=== PATIENT | male | born 1945 | race Caucasian/White ===

== ENCOUNTER 2016-08-05 10:21 | Emergency (ER) | payer OTHER ==
[~2016-08-05] VITALS: Ht 176.5 cm; Wt 73.9 kg
--- NOTE | 2016-08-05 10:38 | ED GENERAL ADULT ---
History of Present Illness General Chief Complaint: Dizziness Stated Complaint: DIZZINESS, CHILLS, FEVER Source: patient, family, old records Exam Limitations: no limitations Vital Signs & Intake/Output Vital Signs & Intake/Output Vital Signs Date Time Temp Pulse Resp B/P Pulse O2 O2 Flow FiO2 Ox Delivery Rate 08/05 1250 99.9 60 18 109/58 99 Room Air 08/05 1209 100.7 08/05 1128 101.7 08/05 1123 101.7 08/05 1042 96 08/05 1031 97.5 87 20 130/74 97 Room Air Room Air Allergies Coded Allergies: acetaminophen (From VICODIN) (Intermediate, ITCHY RASH 08/05/16) hydrocodone (From VICODIN) (Intermediate, ITCHY RASH 08/05/16) oxycodone (From PERCOCET) (Intermediate, ITCHY RASH 08/05/16) Reconcile Medications Benzonatate (Tessalon Perle) 100 MG CAPSULE 1 CAP PO TID PRN COUGH Oseltamivir Phosphate (Tamiflu) 75 MG CAPSULE 1 CAP PO BID FLU Triage Note: PT TO ED WITH C/O "THURSDAY I WENT TO THE WALK IN AND DX WITH [facility], GIVEN AUGMENTIN" "I'VE BEEN DEALING WITH THIS FOR 3 WEEKS, LAST NIGHT TEMP 102, TOOK MOTRIN THIS AM, TEMP 98.1 IN TRIAGE. PT HAS HX OF LOW WBC'S AND LOW RBC'S "HE SEES DR FERRER FOR THIS". Triage Nurses Notes Reviewed? yes Onset: Gradual Duration: day(s): (1) Timing: remote history Injury Environment: home Severity: moderate Severity Numbers: 8 No Modifying Factors: none HPI: Patient is a 71-year-old male with history of hypercholesterolemia, hypertension presenting to the emergency department with chief complaint of intermittent dizziness, shakes, fevers up to 102, malaise and weakness that's been going on since yesterday. He was recently diagnosed with bronchitis at a walk-in clinic. On Augmentin currently. He reports that the cough is progressively getting worse. Denies any chest pain or palpitations. Denies abdominal pain. Positive nausea this morning but no vomiting. Denies diarrhea. No urinary symptoms. No recent travel. Positive contact with someone who was tested positive for the flu. (ДМИТРИЙ KIMBROUGH,ILA) Past History Travel History Traveled to [place] past 21 day No Medical History Any Pertinent Medical History? see below for history Neurological: NONE EENT: allergies Cardiovascular: hyperlipidemia Respiratory: NONE Gastrointestinal: GERD, hiatal hernia, BARRETS ESOPHOGUS Hepatic: NONE Renal: NONE Musculoskeletal: osteoarthritis Psychiatric: NONE Endocrine: NONE Blood Disorders: anemia, LOW WBC'S, LOW RBC'S Cancer(s): SKIN CA Surgical History Surgical History: non-contributory Psychosocial History What is your primary language Slovenian Tobacco Use: Never used ETOH Use: denies use Illicit Drug Use: denies illicit drug use Family History Hx Contributory? No (ILA SCOTT) Review of Systems Review of Systems Constitutional: Reports: see HPI, chills, fever, malaise, weakness. Comments Review of systems: See HPI, All other systems negative. Constitutional, NO weight loss HEENT: No visual changes no sore throat Cardiovascular: No chest pain ,palpitation , orthopnea or ankle swelling Skin, no jaundice no rashes Respiratory: No DYSPNEA hemoptysis GI: no vomiting : No dysuria No hematuria Muscle skeletal: no back pain, no neck pain, Neurologic: No numbness no confusion Psych: No stress anxiety or depression,. Heme/endocrine: No bruising no bleeding no polyuria or polydipsia Immunology: No splenectomy or history of AIDS (ILA SCOTT) Physical Exam Physical Exam General Appearance: alert, awake, RIGOROUS Comments: Well-developed well-nourished person in no acute distress HEENT: Pupils equally round and reactive to light and accommodation. Nose is atraumatic. External auditory canal and Tympanic membranes clear. Pharynx normal. No swelling or edema. Dry oral mucosa. Neck: Supple, no lymphadenopathy, normal range of motion without pain or tenderness Back: Nontender, no CVA tenderness. Full range of motion Cardiovascular: Regular rate and rhythms no murmurs rubs or gallops, normal JVP Respiratory: Chest nontender. No respiratory distress.diffuse rhonchi to auscultation bilaterally Abdomen: Soft, nontender nondistended, no appreciable organomegaly. Normal bowel sounds. No ascites, no rebound or guarding Extremity: No edema, no calf tenderness to palpation, normal and equal pulses. Neuro: Alert oriented x3, motor sensory normal, cranial nerves II through XII grossly intact. Skin: No appreciable rash on exposed skin, skin is warm and dry. Psych: Mood and affect is normal, memory and judgment is normal. Core Measures ACS in differential dx? No CVA/TIA Diagnosis: No Severe Sepsis Present: No Septic Shock Present: No (ILA SCOTT) Progress Differential Diagnoses I considered the following diagnoses in my evaluation of the patient: Influenza , viral syndrome, pneumonia, bronchitis, dehydration, electrolyte abnormality, anemia Plan of Care: Orders Procedure Date/time Status COMPREHENSIVE METABOLIC PANEL 08/05 1102 Complete CBC WITHOUT DIFFERENTIAL 08/05 1102 Complete RAPID VIRAL INFLUENZA A 08/05 1028 Complete VIRAL CULTURE 08/05 1028 Active EKG 08/05 1028 Active Laboratory Tests 08/05/16 1108: Anion Gap 11, Estimated GFR > 60, BUN/Creatinine Ratio 15.6, Glucose 124 H, Calcium 9.2, Total Bilirubin 0.8, AST 32, ALT 30, Alkaline Phosphatase 70, Total Protein 6.8, Albumin 4.1, Globulin 2.7, Albumin/Globulin Ratio 1.5, CBC w Diff NO MAN DIFF REQ, RBC 3.63 L, MCV 100.5 H, MCH 33.6 H, RDW 15.6 H, MPV 8.9, Gran % 63.3, Lymphocytes % 25.5, Monocytes % 10.4 H, Eosinophils % 0.2, Basophils % 0.6, Absolute Granulocytes 1.2 L, Absolute Lymphocytes 0.5 L, Absolute Monocytes 0.2, Absolute Eosinophils 0, Absolute Basophils 0, PUBS MCHC 33.4 08/05/16 1028: Virus Culture Pending Diagnostic Imaging: Viewed by Me: Radiology Read. Discussed w/RAD: Radiology Read. CXR Impression: no acute abnormality, no infiltrates, normal size heart, normal mediastinum Initial ED EKG: NSR (79 BPM) Comments: On arrival patient no acute distress, appears to be right wrist. Temperature was rechecked once in the exam room and it was 101.7. Patient started on IV Toradol, IV Tylenol. Flu swab ordered. Patient informed of positive flu. Chest x-rays negative. EKG is unremarkable. Patient feeling much better after IV hydration. He will be discharged home. He will follow up with PCP. Per White blood cell count has been 1.9 in the past, baseline is 2.5. He'll follow-up with . (ILA SCOTT) Departure Departure Time of Disposition: 1334 Disposition: HOME OR SELF CARE Condition: Stable Clinical Impression Primary Impression: Influenza A Referrals: PARISA CLARKE APRN (PCP/Family) Additional Instructions: Follow-up with your primary care physician calling appointment. you were given copies of your lab work results. Continue taking Tamiflu. Take Tessalon Perles as prescribed for cough. Increase fluids. Return for worsening symptoms or concerns. Departure Forms: Customer Survey General Discharge Information Prescriptions: Current Visit Scripts Oseltamivir Phosphate (Tamiflu) 1 CAP PO BID #10 CAP Benzonatate (Tessalon Perle) 1 CAP PO TID PRN COUGH #30 CAP (ILA SCOTT) PA/ENVIRONMENTAL CONSERVATION OFFICER Co-Sign Statement Statement: ED Attending supervision documentation- x I saw and evaluated the patient. I have also reviewed all the pertinent lab results and diagnostic results. I agree with the findings and the plan of care as documented in the PA's/ENVIRONMENTAL CONSERVATION OFFICER's documentation. [] I have reviewed the ED Record and agree with the PA's/ENVIRONMENTAL CONSERVATION OFFICER's documentation. [] Additions or exceptions (if any) to the PAs/ENVIRONMENTAL CONSERVATION OFFICER's note and plan are summarized below: [] (PACO PERSAUD,WEN) Critical Care Note Critical Care Note Critical Care Time: non-applicable (ILA SCOTT)
[2016-08-05 11:18] LABS: ABSOLUTE BASOPHIL COUNT 0 /CUMM (0.0-0.2); ABSOLUTE EOSINOPHIL COUNT 0 /CUMM (0.0-0.7); ABSOLUTE GRANULOCYTE CT 1.2 /CUMM (1.4-6.5); ABSOLUTE LYMPH COUNT 0.5 /CUMM (1.2-3.4); ABSOLUTE MONOCYTE COUNT 0.2 /CUMM (0.10-0.60); BASOPHIL % 0.6 % (0.0-2.0); EOSINOPHIL % 0.2 % (0-5); GRANULOCYTE % 63.3 % (42.2-75.2); HEMATOCRIT 36.4 % (42-52); MEAN CORPUSCULAR HGB 33.6 PG (27.0-31.0); MEAN CORPUSCULAR HGB CONC 33.4 G/DL (33.0-37.0); MEAN CORPUSCULAR VOLUME 100.5 FL (80.0-94.0); MEAN PLATELET VOLUME 8.9 FL (7.4-10.4); PLATELET COUNT 127 /CUMM (130-400); RBC DISTRIBUTION WIDTH 15.6 % (11.5-14.5); RED BLOOD CELL CT 3.63 /CUMM (4.70-6.10); WHITE BLOOD CELL COUNT 1.9 /CUMM (4.8-10.8)
[2016-08-05 12:50] VITALS: BP 109/58
[2016-08-05] MEDS ORDERED: TAMIFLU75 M1 PO (12:57)
[2016-08-05] MEDS ORDERED: TESSALON PERLE100 M1 PO (12:57)
--- NOTE | 2016-08-05 13:07 | RADIOLOGY REPORT ---
EXAMINATION: XR CHEST CLINICAL INFORMATION: Recent bronchitis COMPARISON: Chest CT 09/05/2014, chest radiograph 06/25/2009 TECHNIQUE: 2 views of the chest were obtained. FINDINGS: No focal consolidation, pleural effusion or pneumothorax. Heart size is normal. Minimal tortuosity and atherosclerosis thoracic aorta. No acute osseous abnormality. IMPRESSION: No acute cardiopulmonary process.
== END 2016-08-05 13:46 ==
LOC: ERH 10:21
PROVIDERS: Physician Assistant
DX: J09.X2 Influenza due to identified novel influenza A virus with other respiratory manifestations (principal); R50.9 Fever, unspecified; R53.1 Weakness; R05 Cough
CPT/HCPCS: 87804; 87804-59; 93005; 93010; 96374; 96375; J0131